=== PATIENT | female | born 1995 | race Caucasian/White ===

== ENCOUNTER 2019-01-28 12:21 | Observation (INO) ==
[2019-01-28 13:21] LABS: Bilirubin,Urine Negative (Negative); Blood,Urine Negative (Negative); Clarity,Urine Clear (Clear); Color,Urine Yellow (Yellow); Glucose,Urine (UA) Normal (Normal); Ketones,Urine Negative (Negative); Leukocyte Esterase,Urine Moderate (Negative); Nitrite,Urine Negative (Negative); PH,Urine 6.5 pH Units (5.0-8.0); Protein,Urine Negative (Neg-Trace); Specific Gravity,Urine 1.021 (1.010-1.025); Urobilinogen,Urine Normal (Normal)
[2019-01-28 13:25] LABS: Bacteria,Urine Few per hpf (None-Few); Hyaline Casts,Urine None Seen per lpf (None-Few); RBC,Urine 0-3 per hpf (0-3); Squamous Epithelial Cell,Urine Many per lpf (None-Few)
[2019-01-28 13:30] LABS: Amphetamine Screen,Urine Negative ng/mL (Cutoff=1000); Barbiturate Screen,Urine Negative ng/mL (Cutoff=200); Benzodiazepines Screen,Urine Negative ng/mL (Cutoff=200); Cannabinoid Screen,Urine Negative ng/mL (Cutoff = 50); Cocaine Screen,Urine Negative ng/mL (Cutoff= 300); Opiate Screen,Urine Negative ng/mL (Cutoff=300); Phencyclidine Screen,Urine Negative ng/mL (Cutoff=25)
--- NOTE | 2019-01-28 14:20 | OB/GYN Progress Note ---
Date of Encounter: 01/28/19 Time of Encounter: 14:20 - Assessment and Plan (1) 31 weeks gestation of Current Visit: Yes Status: Acute (2) Abdominal pain affecting Current Visit: Yes Status: Acute No contractions on toco. SVE closed and thick. Suspect round ligament pain. (3) Vaginal discharge during in third trimester Current Visit: Yes Status: Acute Cultures pending. Anticipate discharge home with precautions once cultures result. Subjective - Subjective Interval history: 24 year-old (adopted) presenting at 31w6d with c/o sharp lower abdominal and vaginal pain that started yesterday morning. She reports the pain got worse through the day despite drinking lots of water. She Antepartum ROS: movement normal, no loss of fluid, no vaginal bleeding, no contractions Objective - Exam FHR: category 1 FHR comments: 135 BPM, reactive NST Abdomen: Present: soft, gravid, tenderness (mildly TTP in bilateral lower abdomen over round ligaments) Cervical dilation: closed/thick/high - Labs Labs: Abnormal lab results Ur Leukocyte Esterase Moderate (Negative) H 01/28/19 13:00 Urine Microscopic WBC 5-15 per hpf (0-3) H 01/28/19 13:00 Ur Squamous Epith Cells Many per lpf (None-Few) H 01/28/19 13:00 Ur Culture Indicated? YES (NO) A 01/28/19 13:00
[2019-01-28 15:12] LABS: Candida DNA Not Detected (Not Detect); Gardnerella DNA DETECTED (Not Detect); Trichomonas DNA Not Detected (Not Detect)
== END 2019-01-28 15:15 | disposition home or self-care (01) ==
LOC: 1NENULAB
PROVIDERS: ADMIT Registered Nurse; ATTEND Registered Nurse

== ENCOUNTER 2019-02-06 17:56 | Observation (INO) ==
[2019-02-06 19:05] LABS: Bilirubin,Urine Negative (Negative); Blood,Urine Negative (Negative); Clarity,Urine Cloudy (Clear); Color,Urine Yellow (Yellow); Glucose,Urine (UA) Normal (Normal); Ketones,Urine Negative (Negative); Leukocyte Esterase,Urine Negative (Negative); Nitrite,Urine Negative (Negative); PH,Urine 6.5 pH Units (5.0-8.0); Protein,Urine Negative (Neg-Trace); Specific Gravity,Urine 1.013 (1.010-1.025); Urobilinogen,Urine Normal (Normal)
[2019-02-06 19:12] LABS: Hyaline Casts,Urine None Seen per lpf (None-Few); RBC,Urine 0-3 per hpf (0-3); Squamous Epithelial Cell,Urine Many per lpf (None-Few); WBC,Urine 0-3 per hpf (0-3)
[2019-02-06 19:17] LABS: Amphetamine Screen,Urine Negative ng/mL (Cutoff=1000); Bacteria,Urine Few per hpf (None-Few); Barbiturate Screen,Urine Negative ng/mL (Cutoff=200); Benzodiazepines Screen,Urine Negative ng/mL (Cutoff=200); Cannabinoid Screen,Urine Negative ng/mL (Cutoff = 50); Cocaine Screen,Urine Negative ng/mL (Cutoff= 300); Opiate Screen,Urine Negative ng/mL (Cutoff=300); Phencyclidine Screen,Urine Negative ng/mL (Cutoff=25)
--- NOTE | 2019-02-06 19:34 | OB/GYN Progress Note ---
Date of Encounter: 02/06/19 Time of Encounter: 19:30 - Assessment and Plan (1) Diarrhea Current Visit: Yes Status: Acute UA without ketones, normal specific gravity. Will give immodium. Encourage PO hydration. Discharge home with return precautions Qualifiers: Diarrhea type: unspecified type Qualified Code(s): R19.7 - Diarrhea, unspecified (2) 33 weeks gestation of Current Visit: Yes Status: Acute Subjective - Subjective Principal diagnosis: diarrhea Interval history: 24 year-old (adopted) presenting at 33w1d with c/o diarrhea for the last 2 days. She was concerned about dehydration or infection that could harm baby so she wanted to be checked out. She denies ill contacts. She has not taken anything for the diarrhea. She admits some nausea but no vomiting. SHe has been pushing fluids. No leaking, bleeding, contractions or other complaints. Good FM. Antepartum ROS: movement normal, no loss of fluid, no vaginal bleeding, no contractions Objective - Vital Signs Vital Signs: Intake and Output 02/06/19 02/06/19 02/06/19 07:59 15:59 23:59 Other: Weight 119.2 kg Patient Weight 02/06/19 23:59 Weight 119.2 kg - Exam FHR: category 1 FHR comments: 135 BPM, reactive NST Auscultation: bilateral: normal Abdomen: Present: soft, gravid Uterus: Absent: tenderness - Labs Labs: Abnormal lab results Urine Clarity Cloudy (Clear) A 02/06/19 18:26 Ur Squamous Epith Cells Many per lpf (None-Few) H 02/06/19 18:26 Ur Culture Indicated? YES (NO) A 02/06/19 18:26
== END 2019-02-06 20:04 | disposition home or self-care (01) ==
LOC: 1NENULAB
PROVIDERS: ADMIT Registered Nurse; ATTEND Registered Nurse

== ENCOUNTER → 2019-02-18 17:38 | Observation (INO) ==
[2019-02-18 16:06] LABS: Amphetamine Screen,Urine Negative ng/mL (Cutoff=1000); Barbiturate Screen,Urine Negative ng/mL (Cutoff=200); Benzodiazepines Screen,Urine Negative ng/mL (Cutoff=200); Cannabinoid Screen,Urine Negative ng/mL (Cutoff = 50); Cocaine Screen,Urine Negative ng/mL (Cutoff= 300); Opiate Screen,Urine Negative ng/mL (Cutoff=300); Phencyclidine Screen,Urine Negative ng/mL (Cutoff=25)
[2019-02-18 16:09] LABS: Bilirubin,Urine Negative (Negative); Blood,Urine Negative (Negative); Clarity,Urine Turbid (Clear); Color,Urine Yellow (Yellow); Glucose,Urine (UA) Normal (Normal); Ketones,Urine Negative (Negative); Leukocyte Esterase,Urine Small (Negative); Nitrite,Urine Negative (Negative); PH,Urine 7.5 pH Units (5.0-8.0); Protein,Urine Negative (Neg-Trace); Specific Gravity,Urine 1.019 (1.010-1.025); Urobilinogen,Urine Normal (Normal)
[2019-02-18 16:12] LABS: Bacteria,Urine Few per hpf (None-Few); Hyaline Casts,Urine None Seen per lpf (None-Few); RBC,Urine 0-3 per hpf (0-3); Squamous Epithelial Cell,Urine Many per lpf (None-Few); WBC,Urine 0-3 per hpf (0-3)
--- NOTE | 2019-02-18 16:22 | Discharge Summary ---
Date of Encounter: 02/18/19 Time of Encounter: 16:22 - Discharge Diagnosis (1) 34 weeks gestation of Priority: Primary Status: Acute Comments: Admit to observation for complaint of possible SROM at 34w6d (2) NST (non-stress test) reactive Priority: Secondary Status: Acute Comments: FHR 130 bpm, moderate variability, +15x15 accels, no decels. (3) Vaginal discharge during in third trimester Priority: Secondary Status: Acute Comments: Vaginosis panel collected, results pending at time of note. Will treat as appropriate for any positive result. - Discharge Medications Prescriptions: No Action Vit 108/Iron/Folic AC [ One Tablet] 1 each PO DAILY Ferrous Sulfate [High Potency Iron] 1 tab PO DAILY Home Medications: Vit 108/Iron/Folic AC [ One Tablet] 1 each PO DAILY 01/28/19 [History] Ferrous Sulfate [High Potency Iron] 1 tab PO DAILY 02/18/19 [History] Allergies/Adverse Reactions: Allergy/AdvReac Type Severity Reaction Status Date / Time No Known Drug Allergies Allergy See Verified 02/06/19 18:25 Comments Data Procedures and tests throughout hospitalization: Laboratory Tests 02/18/19 02/18/19 15:10 15:42 Urine Color Yellow Urine Clarity Turbid A Urine pH 7.5 Ur Specific [place] 1.019 Urine Protein Negative Urine Glucose (UA) Normal Urine Ketones Negative Urine Blood Negative Urine Nitrite Negative Urine Bilirubin Negative Urine Urobilinogen Normal Ur Leukocyte Esterase Small H Urine Microscopic RBC 0-3 Urine Microscopic WBC 0-3 Ur Squamous Epith Cells Many H Urine Bacteria Few Hyaline Casts None Seen Ur Culture Indicated? YES A Urine Opiates Screen Negative Ur Buprenorphine Scrn Negative Ur Barbiturates Screen Negative Ur Phencyclidine Scrn Negative Ur Amphetamines Screen Negative U Benzodiazepines Scrn Negative Urine Cocaine Screen Negative U Marijuana (THC) Screen Negative Ur Drug Screen Interp See Below Labs on day of discharge: Labs from last 24 hours 02/18/19 02/18/19 15:42 15:10 Urine Color Yellow Urine Clarity Turbid A Urine pH 7.5 Ur Specific [place] 1.019 Urine Protein Negative Urine Glucose (UA) Normal Urine Ketones Negative Urine Blood Negative Urine Nitrite Negative Urine Bilirubin Negative Urine Urobilinogen Normal Ur Leukocyte Esterase Small H Urine Microscopic RBC 0-3 Urine Microscopic WBC 0-3 Ur Squamous Epith Cells Many H Urine Bacteria Few Hyaline Casts None Seen Ur Culture Indicated? YES A Urine Opiates Screen Negative Ur Buprenorphine Scrn Negative Ur Barbiturates Screen Negative Ur Phencyclidine Scrn Negative Ur Amphetamines Screen Negative U Benzodiazepines Scrn Negative Urine Cocaine Screen Negative U Marijuana (THC) Screen Negative Ur Drug Screen Interp See Below Date of admission: 02/18/19 14:41 Primary care physician: Elizabeth Campos CNP Discharging clinician: Alicia Dallas Anticipated date of discharge: 02/18/19 - Patient Status Disposition: Home, Self-Care Condition: Good Functional capacity at discharge: independent ambulation Overall status at discharge: patient is progressing back to baseline - Discharge Instructions Follow Up With: Elizabeth Campos CNP [Primary Care Provider] - - Diet and Activity Activity: resume usual activities as tolerated Diet: regular diet Hospital Course SURGERY MANAGER Hospital course: Patient arrived with complaint of possible SROM at 1310 today. States she had a gush of fluid and another gush at 1330. On initial RN exam, nitrazine was found to be positive. Patient does report positive movement and denies vaginal bleeding, recent sexual intercourse, and regular contractions. SSE was performed and no watery fluid was visualized. Sample was obtained for FERN sample which was negative. Vaginosis panel collected and sent to lab with results pending at time of note. Will treat for any positive results as indicated and notify patient. SVE tight 1cm/thick/ballotable. Rare contractions noted on toco monitor and FHR appropriate for gestational age. Patient is to follow up as scheduled with her OB provider for routine visit. Time Attestation: Total time spent providing and/or coordinating discharge services: Time Spent: Less than 30 minutes Exam - Constitutional General appearance IM: A&O X 3, pleasant, no acute distress, answers questions appropriately - Respiratory Respiratory exam: Present: CTAB. Absent: respiratory distress - Cardiovascular Cardiovascular exam IM: Present: RRR, +S1, +S2. Absent: irregular rhythm - GI/Abdominal GI/Abdominal exam IM: normal bowel sounds, soft - Rectal Rectal exam: deferred - External exam: normal external exam - Extremities Exam Extremities exam IM: Present: full ROM, normal capillary refill, normal inspection. Absent: calf tenderness - Neurological Exam Neurological exam: alert, normal gait, oriented X3 - VTE Reasons for not Prescribing Prophylaxis: Treatment not Indicated - Low risk for VTE
[2019-02-18 17:18] LABS: Candida DNA Not Detected (Not Detect); Gardnerella DNA DETECTED (Not Detect); Trichomonas DNA Not Detected (Not Detect)
== END | disposition home or self-care (01) ==
LOC: 1NENULAB
PROVIDERS: ADMIT Registered Nurse; ATTEND Registered Nurse

== ENCOUNTER 2019-03-20 14:35 | Inpatient (IN) ==
[2019-03-20] MEDS ORDERED: Metoclopramide 10 MG/2 ML VIAL IVP PRN (14:59)
[2019-03-20] MEDS ORDERED: *HR* Nalbuphine 10 MG/ML AMPUL IVP PRN (14:59)
[2019-03-20] MEDS ORDERED: Famotidine 20 MG/2 ML VIAL IVP PRN (14:59)
[2019-03-20] MEDS ORDERED: Naloxone 0.4 MG/ML INJ IVP PRN (14:59)
[2019-03-20] MEDS ORDERED: Lidocaine 1% 20 ML MDV INFILT PRN (14:59)
[2019-03-20] MEDS ORDERED: miSOPROStol 25 MCG TABLET PO PRN (14:59)
[2019-03-20] MEDS ORDERED: Oxytocin 20 units/ LR 1000 mL 20 UNIT/1,000 ML BAG IVC SCH (15:00)
[2019-03-20] MEDS ORDERED: Penicillin G Potassium 5,000,000 UNIT in 0.9 % Sodium Chloride Mini Bag 100 ML IVPB ONE (15:02)
[2019-03-20] MEDS ORDERED: Lidocaine -MPF 1% 2 ML VIAL ONE (15:27)
[2019-03-20] MEDS: Ringers Solution, Lactated 1,000 ML IVC SCH ×2 (15:44→16:39)
[2019-03-20 16:11] LABS: Basophils % 0.2 %; Eosinophils % 0.4 %; Hematocrit 39.7 % (35.3-44.9); Hemoglobin 12.9 g/dL (11.5-15.4); Immature Granulocytes % 0.4 % (0-4); Lymphocytes # 1.3 K/mcL (0.6-4.6); Lymphocytes % 12.7 %; Mean Corpuscular HGB Conc 32.5 g/dL (31.6-35.5); Mean Corpuscular Hemoglobin 28.4 pg (28.0-33.3); Mean Corpuscular Volume 87.3 fL (83.0-100.0); Mean Platelet Volume 10.8 fL (9.4-12.4); Monocytes # 0.4 K/mcL (0.0-1.3); Monocytes % 4.4 %; Neutrophils # 8.1 K/mcL (1.6-8.9); Platelet Count 352 K/mcL (140-400); Red Blood Count 4.55 M/mcL (3.82-4.97); Red Cell Distribution Width 14.4 % (11.5-14.5); Segmented Neutrophils % 81.9 %; White Blood Count 9.9 K/mcL (4.3-11.1)
[2019-03-20 16:25] LABS: Amphetamine Screen,Urine Negative ng/mL (Cutoff=1000); Barbiturate Screen,Urine Negative ng/mL (Cutoff=200); Benzodiazepines Screen,Urine Negative ng/mL (Cutoff=200); Cannabinoid Screen,Urine Negative ng/mL (Cutoff = 50); Cocaine Screen,Urine Negative ng/mL (Cutoff= 300); Opiate Screen,Urine Negative ng/mL (Cutoff=300); Phencyclidine Screen,Urine Negative ng/mL (Cutoff=25)
[2019-03-20] MEDS ORDERED: FLU Vac QV 19-20 (6Month+)/PF 0.5 ML SYRINGE IM ONE (16:58)
[2019-03-20] MEDS: Penicillin G Potassium 2,500,000 UNIT in 0.9 % Sodium Chloride 100 ML IVPB SCH ×2 (20:18)
[2019-03-20] MEDS: Epidural Premix (fent/bupiv) 110 ML EP SCH (21:30)
[2019-03-20] MEDS: Ondansetron 4 MG/2 ML VIAL IVP PRN (22:52)
[2019-03-21] MEDS: Epidural Premix (fent/bupiv) 110 ML EP SCH (02:02)
[2019-03-21] MEDS ORDERED: *HR* Promethazine 25 MG/ML VIAL IVP PRN (02:37)
[2019-03-21] MEDS: Penicillin G Potassium 2,500,000 UNIT in 0.9 % Sodium Chloride 100 ML IVPB SCH (08:48)
[2019-03-21] MEDS: Ondansetron 4 MG/2 ML VIAL IVP PRN (10:45)
[2019-03-21] MEDS ORDERED: Benzocaine/Menthol 56 GM AEROSOL SPRAY TP PRN (14:09)
[2019-03-21] MEDS ORDERED: Oxytocin 20 units/ LR 1000 mL 20 UNIT/1,000 ML BAG IVC SCH (14:09)
[2019-03-21] MEDS ORDERED: Acetaminophen 325 MG TABLET PO PRN (14:09)
[2019-03-21] MEDS: Ibuprofen 600 MG TABLET PO PRN (14:31)
[2019-03-22] MEDS: Ibuprofen 600 MG TABLET PO PRN ×2 (04:43→10:48)
[2019-03-22] MEDS: Prenatal Vit/FA 1 EACH TABLET PO SCH (10:48)
[2019-03-23 07:45] VITALS: BP 116/74
[2019-03-23] MEDS: Prenatal Vit/FA 1 EACH TABLET PO SCH (07:51)
[2019-03-23] MEDS: Ibuprofen 600 MG TABLET PO PRN (07:55)
== END 2019-03-23 11:28 | disposition home or self-care (01) | DRG 560 ==
LOC: 1NENULAB 14:35 → 1NENUOBS 03-21 16:28
PROVIDERS: ADMIT Advanced Practice Midwife; ATTEND Advanced Practice Midwife